=== PATIENT | female | born 1960 | race Caucasian/White ===

== ENCOUNTER 2022-05-08 10:45 | Outpatient (CLI) | payer OTHER | END 2022-05-08 10:46 | disposition home or self-care (01) | LOC: RAD 10:45 | PROVIDERS: ATTEND Physical Medicine & Rehabilitation | DX: I69.891 Dysphagia following other cerebrovascular disease (principal); R13.10 Dysphagia, unspecified; R63.30 Feeding difficulties, unspecified | CPT/HCPCS: 74230 ==